=== PATIENT | male | born 1950 | race Caucasian/White ===

== ENCOUNTER 2019-09-21 10:45 | Inpatient (IN) ==
[2019-09-21] MEDS ORDERED: NITROGLYCERIN SL 0.4 MG TABLET SL PRN (10:52)
[2019-09-21] MEDS ORDERED: HEPARIN 1,000 UNIT/1 ML VIAL ONE (10:52)
[2019-09-21] MEDS ORDERED: HEPARIN 5,000 UNIT/1 ML VIAL IV ONE (10:52)
[2019-09-21] MEDS ORDERED: ASPIRIN 325 MG TABLET PO STA (10:52)
[2019-09-21] MEDS ORDERED: HEPARIN 5,000 UNIT/1 ML VIAL ONE ×2 (10:53→10:58)
[2019-09-21] MEDS ORDERED: ASPIRIN CHEW 81 MG TABLET PO ONE (10:53)
[2019-09-21] MEDS ORDERED: METOPROLOL TARTRATE 5 MG/5 ML VIAL IV ONE (10:58)
[2019-09-21] MEDS ORDERED: METOPROLOL TARTRATE 5 MG/5 ML VIAL IV STA (11:00)
[2019-09-21] MEDS ORDERED: HEPARIN 5,000 UNIT/1 ML VIAL IV STA (11:00)
[2019-09-21 11:04] LABS: Basophils # 0.1 10*3/uL (0.0-0.2); Basophils % 0.9 % (0.0-0.8); Eosinophils # 0.2 10*3/uL (0.0-0.87); Hematocrit 48.6 VOL% (42.0-52.0); Hemoglobin 15.8 GM/DL (14.0-18.0); Immature Granulocytes % 0.6 %; Immature Granulocytes Absolute 0.06 #; Lymphocytes # 3.8 10*3/uL (1.4-4.0); Lymphocytes % 40.9 % (21.2-54.2); Mean Corpuscular HGB Conc 32.5 GM/DL (32-36); Mean Corpuscular Volume 77.9 FL (87-102); Mean Platelet Volume 9.4 FL (9.6-12.0); Monocytes % 9.8 % (1.7-12.7); Neutrophils % 45.8 % (38.7-73.9); Platelet Count 268 T/CUMM (130-400); Red Blood Count 6.24 MC/CUMM (3.8-5.5); Red Cell Distribution Width 13.7 % (9.3-17.3); White Blood Count 9.3 T/CUMM (4-12)
[2019-09-21] MEDS ORDERED: MORPHINE 4 MG/1 ML VIAL ONE (11:08)
[2019-09-21] MEDS ORDERED: ONDANSETRON 4 MG/2 ML VIAL ONE (11:09)
[2019-09-21 11:10] LABS: PT Patient Result 10.9 SECS (9.6-12.2); Partial Thromboplastin Time 24.7 SECS (20.8-36.0)
[2019-09-21] MEDS ORDERED: ONDANSETRON 4 MG/2 ML VIAL IV STA (11:12)
[2019-09-21] MEDS ORDERED: MORPHINE 4 MG/1 ML VIAL IV STA (11:12)
[2019-09-21 11:13] LABS: Calcium 9.4 MG/DL (8.5-10.1)
[2019-09-21] MEDS ORDERED: LIDOCAINE 1% 20 ML VIAL ONE (11:21)
[2019-09-21] MEDS ORDERED: MIDAZOLAM 2 MG/2 ML VIAL ONE (11:22)
[2019-09-21] MEDS ORDERED: NITROGLYCERIN SL 0.4 MG TABLET SL ONE (11:22)
[2019-09-21] MEDS ORDERED: fentaNYL 100 MCG/2 ML VIAL ONE (11:23)
[2019-09-21] MEDS ORDERED: TIROFIBAN 5,000 MCG/100 ML PREMIX IV ONE (11:50)
[2019-09-21] MEDS ORDERED: TICAGRELOR 90 MG TABLET ONE (13:07)
[2019-09-21] MEDS ORDERED: TIROFIBAN 5,000 MCG/100 ML PREMIX IV SCH (13:30)
[2019-09-21] MEDS ORDERED: ONDANSETRON 4 MG/2 ML VIAL IV PRN (13:56)
[2019-09-21] MEDS ORDERED: MAGNESIUM SULF RIDER 2 GM in PREMIX 1 EACH IV PRN (13:56)
[2019-09-21] MEDS ORDERED: MAGNESIUM SULF RIDER 4 GM in PREMIX 1 EACH IV PRN (13:56)
[2019-09-21] MEDS ORDERED: ACETAMINOPHEN 325 MG TABLET PO PRN (13:56)
[2019-09-21] MEDS ORDERED: fentaNYL 100 MCG/2 ML VIAL IV PRN (13:56)
[2019-09-21] MEDS ORDERED: POTASSIUM CHLORIDE 20 MEQ/15 ML UDCUP PO ONE (14:05)
[2019-09-21] MEDS ORDERED: SERTRALINE 25 MG TABLET PO ONE (14:06)
[2019-09-21 14:48] LABS: Risk Ratio 3.95; VLDL CHOLESTEROL 23.6 MG/DL
[2019-09-21] MEDS ORDERED: PNEUMOCOCCAL VACCINE (13 VALENT) 0.5 ML SYRINGE IM ONE (14:54)
[2019-09-21] MEDS: cilostazoL 50 MG TABLET PO SCH ×2 (15:56→20:08)
[2019-09-21] MEDS: GABAPENTIN 100 MG CAPSULE PO SCH ×3 (15:56→20:09)
[2019-09-21] MEDS: PANTOPRAZOLE 40 MG TABLET PO SCH (15:56)
[2019-09-21] MEDS: carvediloL 6.25 MG TABLET PO SCH ×2 (15:56→20:06)
[2019-09-21] MEDS: SODIUM CHLORIDE 0.9% 1,000 ML IV SCH ×2 (15:57→23:25)
[2019-09-21] MEDS: ROSUVASTATIN 20 MG TABLET PO SCH (20:08)
[2019-09-21] MEDS: SERTRALINE 25 MG TABLET PO SCH (20:09)
[2019-09-21] MEDS: TICAGRELOR 90 MG TABLET PO SCH (20:10)
[2019-09-22] MEDS: carvediloL 6.25 MG TABLET PO SCH ×2 (02:17→09:27)
[2019-09-22 04:26] LABS: Basophils % 0.3 % (0.0-0.8); Eosinophils % 0.2 % (0.00-10.9); Hematocrit 37.9 VOL% (42.0-52.0); Hemoglobin 12.1 GM/DL (14.0-18.0); Immature Granulocytes % 0.9 %; Lymphocytes # 1.5 10*3/uL (1.4-4.0); Lymphocytes % 12.4 % (21.2-54.2); Mean Corpuscular HGB Conc 31.9 GM/DL (32-36); Mean Corpuscular Volume 78.6 FL (87-102); Mean Platelet Volume 9.6 FL (9.6-12.0); Monocytes % 8.7 % (1.7-12.7); Neutrophils % 77.5 % (38.7-73.9); Platelet Count 223 T/CUMM (130-400); Red Blood Count 4.82 MC/CUMM (3.8-5.5); Red Cell Distribution Width 13.7 % (9.3-17.3); White Blood Count 11.8 T/CUMM (4-12)
[2019-09-22 05:01] LABS: Albumin 2.9 G/DL (3.4-5.0); Bilirubin,Total 1.5 MG/DL (0.2-1.0); CKMB % 9.9 %; Calcium 7.5 MG/DL (8.5-10.1); Osmolality,Calculated 280.8 MOS/KG (273-304)
[2019-09-22 05:07] LABS: Troponin I 44.8 NG/ML (0.00-0.045)
[2019-09-22] MEDS ORDERED: ATROPINE 1 MG/10 ML SYRINGE IV PRN (06:07)
[2019-09-22] MEDS ORDERED: DOCUSATE SODIUM 100 MG CAPSULE PO PRN (09:00)
[2019-09-22] MEDS ORDERED: BISACODYL 5 MG TABLET PO PRN (09:00)
[2019-09-22] MEDS ORDERED: INFLUENZA VIRUS VACCINE 0.5 ML SYRINGE IM ONE (09:00)
[2019-09-22] MEDS ORDERED: ALUMINUM/MAGNES/SIMETH MAX STR 30 ML UDCUP PO PRN (09:00)
[2019-09-22] MEDS ORDERED: PNEUMOCOCCAL VACCINE (13 VALENT) 0.5 ML SYRINGE IM ONE (09:00)
[2019-09-22] MEDS: ASPIRIN CHEW 81 MG TABLET PO SCH (09:31)
[2019-09-22] MEDS: GABAPENTIN 100 MG CAPSULE PO SCH ×3 (09:31→21:20)
[2019-09-22] MEDS: cilostazoL 50 MG TABLET PO SCH ×2 (09:31→21:20)
[2019-09-22] MEDS: PANTOPRAZOLE 40 MG TABLET PO SCH (09:31)
[2019-09-22] MEDS: TICAGRELOR 90 MG TABLET PO SCH ×2 (09:31→21:20)
[2019-09-22 10:24] LABS: CKMB % 9.7 %
[2019-09-22 10:27] LABS: Troponin I 38.2 NG/ML (0.00-0.045)
[2019-09-22] MEDS ORDERED: ENOXAPARIN 40 MG/0.4 ML SYRINGE SUBCUT SCH (13:00)
[2019-09-22 17:21] LABS: CKMB % 7.9 %
[2019-09-22 17:28] LABS: Troponin I 39.2 NG/ML (0.00-0.045)
[2019-09-22] MEDS: carvediloL 3.125 MG TABLET PO SCH (17:30)
[2019-09-22] MEDS: SERTRALINE 25 MG TABLET PO SCH (21:20)
[2019-09-22] MEDS: ROSUVASTATIN 20 MG TABLET PO SCH (21:20)
[2019-09-23 06:47] LABS: Basophils # 0.1 10*3/uL (0.0-0.2); Basophils % 0.5 % (0.0-0.8); Eosinophils # 0.1 10*3/uL (0.0-0.87); Eosinophils % 0.8 % (0.00-10.9); Hematocrit 36.5 VOL% (42.0-52.0); Hemoglobin 11.8 GM/DL (14.0-18.0); Lymphocytes # 1.5 10*3/uL (1.4-4.0); Lymphocytes % 14.4 % (21.2-54.2); Mean Corpuscular HGB Conc 32.3 GM/DL (32-36); Mean Corpuscular Volume 79.3 FL (87-102); Mean Platelet Volume 9.4 FL (9.6-12.0); Neutrophils % 74.3 % (38.7-73.9); Platelet Count 192 T/CUMM (130-400); Red Cell Distribution Width 13.9 % (9.3-17.3); White Blood Count 10.2 T/CUMM (4-12)
[2019-09-23 07:09] LABS: Osmolality,Calculated 277.8 MOS/KG (273-304)
[2019-09-23 07:11] LABS: Troponin I 24.8 NG/ML (0.00-0.045)
[2019-09-23 08:28] VITALS: BP 127/72
[2019-09-23] MEDS: cilostazoL 50 MG TABLET PO SCH (08:33)
[2019-09-23] MEDS: carvediloL 3.125 MG TABLET PO SCH (08:34)
[2019-09-23] MEDS: GABAPENTIN 100 MG CAPSULE PO SCH (08:34)
[2019-09-23] MEDS: ASPIRIN CHEW 81 MG TABLET PO SCH (08:34)
[2019-09-23] MEDS: TICAGRELOR 90 MG TABLET PO SCH (08:34)
[2019-09-23] MEDS: PANTOPRAZOLE 40 MG TABLET PO SCH (08:34)
[2019-09-23] MEDS ORDERED: LOSARTAN 25 MG TABLET PO SCH (09:00)
== END 2019-09-23 12:04 | disposition home or self-care (01) | DRG 247 ==
LOC: N.ED 10:45 → N.EDINP 10:45 → N.ICU 11:20 → N.TELES 09-22 19:22
PROVIDERS: ADMIT Internal Medicine Cardiovascular Disease; ATTEND Internal Medicine Cardiovascular Disease
PROC: CLCCHCL (ICD-10-PCS; 2019-09-21 11:45)